=== PATIENT | male | born 1990 | race Caucasian/White ===

== ENCOUNTER 2022-06-19 11:01 | Emergency (ER) | payer OTHER ==
[~2022-06-19] VITALS: Ht 182.9 cm; Wt 108.9 kg
--- NOTE | 2022-06-19 11:03 | NUR ---
Patient BIB [facility] ambulance, Patient has partial thickness 3 inch laceration to left medial thigh.
[2022-06-19 11:04] VITALS: BP 131/59
--- NOTE | 2022-06-19 11:10 | NUR ---
Patient changed out of his belongigns. Patient's belongings placed in bad, labeled and given to security. Patient in gown.
--- NOTE | 2022-06-19 11:27 | NUR ---
pb handed to security
--- NOTE | 2022-06-19 11:45 | NUR ---
Patient stated he was drinking due to being depressed about a potential breakup, and doesn't remember cutting himself. PAtient stated "I was drinking because a woman I was seeing wanted to break up and I got depressed. I started drinking and the billiard table assembler showed up." Patient claims he "did not remember cutting himself."
[2022-06-19] MEDS ORDERED: LORA-476 PO ×2 (11:48→17:59)
--- NOTE | 2022-06-19 12:10 | NUR ---
pt swabbed for covid(mishel and novel). handed to lab
--- NOTE | 2022-06-19 12:10 | NUR ---
31YO MALE PT BIBA FROM HOME DUE TO SI XTODAY. PT ON HOLD DUE TO DANGER TO SELF. PER [facility], FRIEND CALLED CONCERNED FOR PT. PRESENTS WITH SELF INFLICTED 4in LACERATION ACROSS L MEDIAL THIGH , MILD ACTIVE BLEEDING NOTED. ALSO PRESENTS WITH SUPERFICIAL LACERATIONS SHANTEL IN WRIST . PT STATES HE HAD "BAD NIGHT" AND STATES HE WAS "SEXUALLY REJECTED". STATES DRINKING BEER THIS MORNING WHILE WATCHING GAME TO HELP EASE ANXIETY. REPORTS HE STOPPED TAKING RX ATIVAN DUE TO NOT REFILLING "I TRY NOT TO TAKE IT ALL THE TIME". C/O LEG PAIN ON MOVEMENT. PT AAOX4, RESPIRATIONS EVEN AND UNLABORED. SPEAKING IN FULL SENTENCES. PT CHANGED INTO GOWN AND IN VIEW. BED AT LOWEST POSITION, BED RAILS UPX2. POTENTIAL HARMFUL ITEMS REMOVED FROM ROOM. HX:ANXIETY, HTN NKA MEDS: ATIVAN
--- NOTE | 2022-06-19 12:29 | NUR ---
MD AT BEDSIDE FOR EVALUATION
[2022-06-19 12:34] LABS: BASOPHILS # (AUTO) 0.1 K/uL (0.00-0.22); BASOPHILS % (AUTO) 0.9 % (0.0-2.0); EOSINOPHILS % (AUTO) 0.5 % (0.0-4.0); HEMOGLOBIN 16.3 g/dL (12.0-18.0); LYMPHOCYTES # (AUTO) 2.6 K/uL (2.0-11.5); LYMPHOCYTES % (AUTO) 36.8 % (20.5-51.1); MEAN CORPUSCULAR HEMOGLOBIN 31 pg (27-31); MEAN CORPUSCULAR HGB CONC 34 g/dL (33-37); MONOCYTES # (AUTO) 0.6 K/uL (0.8-1.0); NEUTROPHILS # (AUTO) 3.8 K/uL (1.8-7.7); NEUTROPHILS % (AUTO) 53.8 % (42.2-75.2); PLATELET COUNT (AUTO) 291 K/uL (140-450); RED BLOOD CELL COUNT(AUTO) 5.28 MIL/uL (4.20-6.10); RED CELL DISTRIBUTION WIDTH 14.9 % (11.6-13.7)
[2022-06-19 12:51] LABS: ANION GAP 17.6 (8-16); CARBON DIOXIDE 24.4 mmol/L (21-32); CREATININE 0.9 mg/dL (0.6-1.3)
[2022-06-19 13:01] LABS: SALICYLATE < 2.8 mg/dL (2.8-20.0)
[2022-06-19] MEDS ORDERED: LORazepam 1 MG TAB PO ONE (13:10)
[2022-06-19 13:11] LABS: BARBITURATE, URINE NEGATIVE ng/ml (NEG <=200); BENZODIAZEPINE, URINE NEGATIVE ng/mL (NEG <=200); CANNABINOID, URINE NEGATIVE ng/mL (NEG <=50); COCAINE, URINE NEGATIVE ng/mL (NEG <=300); OPIATE, URINE NEGATIVE ng/mL (NEG <=2000); PHENCYCLIDINE SCREEN,URINE NEGATIVE ng/mL (NEG <=25)
--- NOTE | 2022-06-19 13:40 | NUR ---
pt provided w/ lunch. pt awake and eating in bed
--- NOTE | 2022-06-19 14:04 | NUR ---
Note undone in EDM - 06/19/22 at 1539 by PHSEP 31YO MALE PT BIBA FROM HOME DUE TO SI XTODAY. PT ON HOLD DUE TO DANGER TO SELF. PER [facility], FRIEND CALLED CONCERNED FOR PT. PRESENTS WITH SELF INFLICTED 4in LACERATION ACROSS L MEDIAL THIGH , MILD ACTIVE BLEEDING NOTED. ALSO PRESENTS WITH SUPERFICIAL LACERATIONS SHANTEL IN WRIST . PT STATES HE HAD "BAD NIGHT" AND STATES HE WAS "SEXUALLY REJECTED". STATES DRINKING BEER THIS MORNING WHILE WATCHING GAME TO HELP EASE ANXIETY. REPORTS HE STOPPED TAKING RX ATIVAN DUE TO NOT REFILLING "I TRY NOT TO TAKE IT ALL THE TIME". C/O LEG PAIN ON MOVEMENT. PT AAOX4, RESPIRATIONS EVEN AND UNLABORED. SPEAKING IN FULL SENTENCES. PT CHANGED INTO GOWN AND IN VIEW. BED AT LOWEST POSITION, BED RAILS UPX2. POTENTIAL HARMFUL ITEMS REMOVED FROM ROOM. HX:ANXIETY, HTN NKA MEDS: ATIVAN
[2022-06-19 14:12] LABS: ACETAMINOPHEN < 0.5 ug/ml (10-30)
[2022-06-19] MEDS ORDERED: NACL 0.9% 1,000 ML IV ONE (15:10)
--- NOTE | 2022-06-19 15:14 | NUR ---
CALL RECEIVED FROM MD ROSALES. UPDATED ON PT STATUS. ORDER RECEIVED FOR PT TO BE TX TO INPATIENT CARE.
--- NOTE | 2022-06-19 15:58 | NUR ---
pt mom updated on pt status and pending tx
--- NOTE | 2022-06-19 16:00 | NUR ---
PT OK TO UPDATE MOM : DREW SANCHEZ [phone]
[2022-06-19] MEDS ORDERED: ATEN50TA2 PO (17:59)
--- NOTE | 2022-06-19 18:00 | NUR ---
pt provided w/ dinner . pt awake and eating in bed
--- NOTE | 2022-06-19 18:39 | NUR ---
PT ON TELEPSYCH CALL FOR EVALUATION W/ MD ROSALES
--- NOTE | 2022-06-19 19:42 | NUR ---
REPORT GIVEN TO YUNIOR JOYCE. ALL QUESTIONS ANSWERED. TRANSFER OF CARE AT THIS TIME
--- NOTE | 2022-06-19 20:00 | NUR ---
RESTING IN BED WITH EYES CLOSED, RESPIRATIONS REGULAR AND UNLABORED
--- NOTE | 2022-06-19 22:37 | NUR ---
PT ASLEEP RESP EVEN AND UNLABORED. Q15 SI CHECKS. SIDE RAILS UPX1 BED AT LOWEST POSITION.
--- NOTE | 2022-06-20 07:20 | NUR ---
Recieved report from ISIAH Downing for transfer of care.
--- NOTE | 2022-06-20 08:25 | NUR ---
Patient was offered was offered breakfast tray.
--- NOTE | 2022-06-20 10:08 | NUR ---
Patient is laying in bed, respirations even and ulabored. All needs met by staff.
--- NOTE | 2022-06-20 12:04 | NUR ---
Patient was offered lunch tray.
--- NOTE | 2022-06-20 12:20 | NUR ---
Patient to be transferred to [facility]. Is being transferred due to Higher Level of Care. Receiving facility has accepting physician and available space. ER physician has signed transfer form. Patient or responsible alliance party has agreed to transfer and signed form. Patient belongings inventoried and will be sent with patient. Copy of nursing notes, lab reports, EKG, Physicians Orders and X-rays to be sent with patient. Report called to Omer at receiving facility. [facility] ambulance service has been called for transfer. ETA is 45 minutes.
--- NOTE | 2022-06-20 12:54 | NUR ---
[facility] at bedside.
[2022-06-20 12:57] VITALS: BP 148/83
--- NOTE | 2022-06-20 13:08 | NUR ---
The patient's care was reviewed and supervised by Rebekah Orellana, RN, RN.
== END 2022-06-20 12:57 ==
LOC: MED 11:01
DX: R45.851 Suicidal ideations (principal); Z20.822 Contact with and (suspected) exposure to COVID-19; F41.9 Anxiety disorder, unspecified; I10 Essential (primary) hypertension; F32.9 Major depressive disorder, single episode, unspecified; Z79.899 Other long term (current) drug therapy; Z91.51 Personal history of suicidal behavior
CPT/HCPCS: 36415; 80048; 80305; 85025; 87426; 87635; 93005; 96360; 99284; C9803; G0480; G0482; J7030